=== PATIENT | male | born 1970 | race African-American/Black ===

== ENCOUNTER 2023-01-13 11:06 | Emergency (ER) | payer OTHER ==
[~2023-01-13] VITALS: Ht 170.2 cm; Wt 68.2 kg
[2023-01-13 11:10] VITALS: BP 142/94; PULSE 78; RESP 16; TEMP 99
[2023-01-13] MEDS ORDERED: ACET-3385 PO (11:12)
[2023-01-13] MEDS ORDERED: ACET-2080 PO (12:32)
[2023-01-13] MEDS ORDERED: IBUP-1554 PO (12:32)
[2023-01-13] MEDS ORDERED: CEPH-558 PO (12:32)
== END 2023-01-13 12:53 | disposition home or self-care (01) ==
LOC: EMS 11:12
DX: J02.9 Acute pharyngitis, unspecified (principal); K05.10 Chronic gingivitis, plaque induced; Z98.890 Other specified postprocedural states
CPT/HCPCS: 87430; 99283